=== PATIENT | female | born 1940 | race Caucasian/White ===

== ENCOUNTER 2017-04-27 06:55 | Day surgery (SDC) | payer MEDICARE, BC ==
[2017-04-27] MEDS ORDERED: Sodium Chloride 0.9% 1,000 ML IV SCH (07:00)
[2017-04-27] MEDS ORDERED: Propofol 200 MG/20 ML SDV ONE (08:23)
[2017-04-27] MEDS ORDERED: fentaNYL 100 MCG/2 ML SDV ONE (08:23)
[2017-04-27] MEDS ORDERED: Midazolam 1 MG/ML 2 ML SDV ONE (08:23)
--- NOTE | 2017-04-27 11:17 | OR ---
DATE OF PROCEDURE: 04/27/2017 PROCEDURE PERFORMED: Colonoscopy. FINDINGS: 1. Diverticulosis, mild, limited to sigmoid colon. 2. Descending colon polyp, approximately 5 mm, completely removed using cold biopsy forceps. 3. Random biopsy of ascending and rectum due to change in bowel habits with very mild inflammation of the colon. PREOPERATIVE DIAGNOSIS: Change in bowel habits concerning for colitis or inflammatory bowel disease. POSTOPERATIVE DIAGNOSIS: Change in bowel habits concerning for colitis or inflammatory bowel disease. RISKS: Risks, benefits, alternatives, and limitations including, but not limited to infection, bleeding, and perforation were explained to the patient, and they wished to proceed. PROCEDURE IN DETAIL: The patient was placed in left lateral decubitus position. Digital rectal exam was performed without abnormality. Scope was introduced and advanced atraumatically to the ileocecal valve. The scope was brought back to the ascending, transverse, descending colon, and retroflexed. Very mild colitis. Random biopsies were performed in the aforementioned locations to rule out any disease. A small polyp was also identified and removed. Biopsies were kept at a minimum due to the patient's Coumadin. Diverticulosis would be described as mild, limited to the sigmoid colon. No abnormalities on retroflex. No active bleeding. No old or new blood. The patient tolerated the procedure well. Real Banegas MD /[id number]
== END 2017-04-27 09:52 | disposition home or self-care (01) ==
LOC: JP.SDS 06:55
PROVIDERS: ATTEND Surgery
DX: D12.4 Benign neoplasm of descending colon (principal); K52.9 Noninfective gastroenteritis and colitis, unspecified; K57.30 Diverticulosis of large intestine without perforation or abscess without bleeding; I10 Essential (primary) hypertension; K21.9 Gastro-esophageal reflux disease without esophagitis; E66.9 Obesity, unspecified; I48.91 Unspecified atrial fibrillation; Z88.8 Allergy status to other drugs, medicaments and biological substances; Z91.09 Other allergy status, other than to drugs and biological substances; Z79.01 Long term (current) use of anticoagulants
CPT/HCPCS: 88305; J2250; J2704; J3010; J7040

== ENCOUNTER 2018-03-29 07:46 | Day surgery (SDC) | payer MEDICARE, BC ==
[~2018-03-29 07:46] MED LIST: Bupivacaine 0.5% 30 ML SDV ONE; Lidocaine 1% with EPINEPHrine 1:100,000 50 ML MDV ONE
[2018-03-29] MEDS ORDERED: Sodium Chloride 0.9% 1,000 ML IV SCH (08:15)
[2018-03-29] MEDS ORDERED: ceFAZolin 2 GM in Premix Bag 1 BAG IV ONE (08:30)
[2018-03-29] MEDS ORDERED: fentaNYL 100 MCG/2 ML SDV ONE (09:36)
[2018-03-29] MEDS ORDERED: Propofol 200 MG/20 ML SDV ONE (09:36)
--- NOTE | 2018-03-29 12:49 | OR ---
DATE OF PROCEDURE: 03/29/2018 PROCEDURE: Hematoma evacuation, left knee, approximate size 2 cm, depth approximately 2.2 cm. COMPLICATIONS: None. DAUB COLOR MIXER: None. ANESTHESIA: MAC/local. RISKS: Risks, benefits, alternatives, and limitations including, but not limited to infection, bleeding, and chronic wound formation, other risks not listed here were explained to the patient, who wished to proceed. PROCEDURE IN DETAIL: The patient was placed in supine position. The knee wound was readily identified. This was anesthetized with 1% lidocaine. A single grisel was created in the skin, and the suction device was introduced and the old dense consistency clot was able to be aspirated. This was then irrigated thoroughly, along with producing additional clots. A one quarter-inch iodoform gauze was placed, and a Border Lite equivalent dressing was applied over this. The patient tolerated the procedure well. Real Banegas MD /[id number]
== END 2018-03-29 11:21 | disposition home or self-care (01) ==
LOC: JP.SDS 07:46
PROVIDERS: ATTEND Surgery
DX: S80.02XA Contusion of left knee, initial encounter (principal); I12.9 Hypertensive chronic kidney disease with stage 1 through stage 4 chronic kidney disease, or unspecified chronic kidney disease; N18.9 Chronic kidney disease, unspecified; E66.01 Morbid (severe) obesity due to excess calories; G47.33 Obstructive sleep apnea (adult) (pediatric); Z99.89 Dependence on other enabling machines and devices; I48.91 Unspecified atrial fibrillation; E03.9 Hypothyroidism, unspecified; K21.9 Gastro-esophageal reflux disease without esophagitis; X58.XXXA Exposure to other specified factors, initial encounter
CPT/HCPCS: 10140; 76998; J0690; J2704; J3010; J3490; J7030